=== PATIENT | female | born 1970 | race Caucasian/White ===

== ENCOUNTER 2024-03-19 20:07 | Observation (INO) | payer SELFPAY ==
[2024-03-19 20:14] VITALS: BP 147/84; PULSE 100; RESP 17; TEMP 36.9; O2SAT 96; BMI 44.4
--- NOTE | 2024-03-19 20:27 | ED_ITS ---
Documented by User: QASIM Saldivar 03/19/24 23:47 HPI - Animal Bite 2 General: Chief Complaint: Animal Bite Stated Complaint: Dog Bite Rt Leg Time Seen by Provider: 03/19/24 20:16 History of Present Illness: 53-year-old female comes in today for in jury to the right lower leg. Patient states that on the fourth another dog came up into the field with her dog and got into a fight. Patient accidentally got bit by her dog to the right lower extremity. To the anterior part of the leg there is a 2 linear wounds with central necrotic tissue. Surrounding redness is noted to the extremity. Distal pulses are intact. Review of Systems 2 General: Reports: 10 or more systems reviewed and unremarkable except in HPI and below Skin/Breast: Reports: changing lesions Physical Exam 2 Const: COMMON NORMALS: alert HENMT: COMMON NORMALS: normocephalic HEAD & SCALP: normocephalic Neck/C-Spine: COMMON NORMALS: full ROM Resp: COMMON NORMALS: normal respiratory effort and clear to auscultation bilaterally AUSCULTATION: clear to auscultation bilaterally Cardio: COMMON NORMALS: regular rate and regular rhythm RATE: regular rate RHYTHM: regular rhythm Back/Pelvis: COMMON NORMALS: thoracic and lumbar spine normal to inspection Extremity: RIGHT LOWER EXTREMITY: Yes lower leg (2 linear necrotic lesions approximately 4 and 5 cm) Neuro: SENSORIUM/ORIENTATION: Yes alert Skin: NARRATIVE SKIN EXAM: Necrotic wound right lower extremity 2 linear patterns 1 is 4 cm of the spine. Course 2 Vital Signs: Vital signs: Vital Signs Temperature 98.4 F 03/20/24 01:39 Pulse Rate 89 03/20/24 01:39 Respiratory Rate 17 03/20/24 01:39 Blood Pressure 140/70 03/20/24 01:23 Pulse Oximetry 96 03/20/24 01:39 Oxygen Delivery Me thod Room Air 03/20/24 01:39 MDM - Animal Bite Medical Decision Making Patient comes in today for worsening dog bite wound to the right lower leg that has wound necrosis. Wound is malodorous and darkened. Patient was bit on the fourth. Differential diagnosis includes abscess, wound necrosis, sepsis. Reviewed patient with Dr. Amaya, attending ER physician, he recommended consulting with orthopedic surgeon Dr. Ibanez. 2227, Dr. Ibanez was involved in a case. I consulted with Dr. Neal, attending hospitalist, she did not want to admit until after discussion with Dr. Ibanez. She did recommend more broad-spectrum antibiotics besides Unasyn. I ordered 1 g of vancomycin. 2240, Dr. Ibanez returned call and will review case and will notify them. 2306, Dr. Ibanez requested hospitalist to admit and he will consult on the patient. Dr. Neal, accepted patient graciously for further treatment. Wound was irrigated with 500 mL of saline and wet-to-dry dressing was applied. Lab Data 03/19/24 20:48 03/19/24 20:48 Radiology Impressions Lower Extremity CT 03/19/24 20:33 IMPRESSION: 1. There is moderate soft tissue inflammation and skin thickening anterolateral to the right ankle and extending inferiorly over the dorsum of the tarsal bones suspicious for cellulitis. No localized abscess. 2. Large calcified enthesophyte at the Achilles tendon insertion. 3. Calcification with enlargement near the insertion of the Achilles tendon suggesting calcific tendinitis. Laboratory Results WBC 12.65 10^3/uL (3.29-11.43) H 03/19/24 20:48 RBC 4.81 10^6/uL (3.85-5.65) 03/19/24 20:48 Hgb 14.60 g/dL (11.27-16.99) 03/19/24 20:48 Hct 43.7 % (36-47) 03/19/24 20:48 MCV 90.9 fl (85-98) 03/19/24 20:48 MCH 30.4 pg (27-33) 03/19/24 20:48 MCHC 33.4 g/dL (30-55) 03/19/24 20:48 RDW 12.9 % (12.1-15.1) 03/19/24 20:48 Plt Count 227 10^3/cmm (157-399) 03/19/24 20:48 MPV 10.3 fL (7.4-10.4) 03/19/24 20:48 Neut % (Auto) 63.5 % 03/19/24 20:48 Lymph % (Auto) 28.3 % 03/19/24 20:48 Taliaferro % (Auto) 5.9 % 03/19/24 20:48 Eos % (Auto) 1.7 % 03/19/24 20:48 Baso % (Auto) 0.4 % 03/19/24 20:48 Neut # (Auto) 8.02 10^3/uL (1.8-7.7) H 03/19/24 20:48 Lymph # (Auto) 3.6 10^3/uL (0.8-4.8) 03/19/24 20:48 Taliaferro # (Auto) 0.8 10^3/uL (0.2-0.9) 03/19/24 20:48 Eos # (Auto) 0.2 10^3/uL (0.0-0.8) 03/19/24 20:48 Baso # (Auto) 0.1 10^3/uL (0.0-0.1) 03/19/24 20:48 Nucleated RBC % (auto) 0 % 03/19/24 20:48 Nucleated RBCs # 0.0 /100WBC 03/19/24 20:48 ESR 34 mm/hr (0-15) H 03/19/24 20:48 Sodium 136 mmol/L (136-145) 03/19/24 20:48 Potassium 4.3 mmol/L (3.5-5.1) 03/19/24 20:48 Chloride 103 mmol/L (98-107) 03/19/24 20:48 Carbon Dioxide 25 mmol/L (22-29) 03/19/24 20:48 Anion Gap 12.3 (5-19) 03/19/24 20:48 BUN 11 mg/dL (6-20) 03/19/24 20:48 Creatinine 0.6 mg/dL (0.5-0.9) 03/19/24 20:48 GFR Calculation 104.2 mL/min (90-130) 03/19/24 20:48 Glucose 121 mg/dL (65-115) H 03/19/24 20:48 Calculated Osmolality 283 mOsm/kg (285-295) L 03/19/24 20:48 Lactic Acid 0.8 mmol/L (0.5-2.2) 03/19/24 20:48 Calcium 8.9 mg/dL (8.5-10.5) 03/19/24 20:48 Total Bilirubin 0.6 mg/dL (0.15-1.2) 03/19/24 20:48 AST 12 U/L (0-32) 03/19/24 20:48 ALT 22 U/L (0-33) 03/19/24 20:48 Alkaline Phosphatase 62 U/L (35-105) 03/19/24 20:48 C-Reactive Protein 113.0 mg/L (0.0-4.9) H 03/19/24 20:48 Total Protein 7.2 g/dL (6.6-8.7) 03/19/24 20:48 Albumin 4.1 g/dL (3.5-5.2) 03/19/24 20:48 Globulin 3.1 g/dL (1.3-4.6) 03/19/24 20:48 All radiology interpretation(s) finalized by discharge Discharge Plan Discharge Patient Disposition: Admitted As Inpatient Admit Provider: Annabel Neal Clinical Impression: Dog bite, Cellulitis and abscess of right leg Condition: Stable Coding Level of Care Code ED Appetizer Packer for Chg Fwd Documented by User: Matthew Amaya DO 03/20/24 02:11 HPI - Animal Bite 2 General: Chief Complaint: Animal Bite Stated Complaint: Dog Bite Rt Leg Time Seen by Provider: 03/19/24 20:16 Course 2 Vital Signs: Vital signs: Vital Signs Temperature 98.4 F 03/20/24 01:39 Pulse Rate 89 03/20/24 01:39 Respiratory Rate 17 03/20/24 01:39 Blood Pressure 140/70 03/20/24 01:23 Pulse Oximetry 96 03/20/24 01:39 Oxygen Delivery Me thod Room Air 03/20/24 01:39 MDM - Animal Bite Medical Decision Making Patient comes in today for worsening dog bite wound to the right lower leg that has wound necrosis. Wound is malodorous and darkened. Patient was bit on the fourth. Differential diagnosis includes abscess, wound necrosis, sepsis. Reviewed patient with Dr. Amaya, attending ER physician, he recommended consulting with orthopedic surgeon Dr. Ibanez. 2227, Dr. Ibanez was involved in a case. I consulted with Dr. Neal, attending hospitalist, she did not want to admit until after discussion with Dr. Ibanez. She did recommend more broad-spectrum antibiotics besides Unasyn. I ordered 1 g of vancomycin. 2240, Dr. Ibanez returned call and will review case and will notify them. 2306, Dr. Ibanez requested hospitalist to admit and he will consult on the patient. Dr. Neal, accepted patient graciously for further treatment. Wound was irrigated with 500 mL of saline and wet-to-dry dressing was applied. This patient was originally seen by QASIM Julian.? I agree with his history, evaluation, and treatment. Lab Data 03/19/24 20:48 03/19/24 20:48 Radiology Impressions Lower Extremity CT 03/19/24 20:33 IMPRESSION: 1. There is moderate soft tissue inflammation and skin thickening anterolateral to the right ankle and extending inferiorly over the dorsum of the tarsal bones suspicious for cellulitis. No localized abscess. 2. Large calcified enthesophyte at the Achilles tendon insertion. 3. Calcification with enlargement near the insertion of the Achilles tendon suggesting calcific tendinitis. Laboratory Results WBC 12.65 10^3/uL (3.29-11.43) H 03/19/24 20:48 RBC 4.81 10^6/uL (3.85-5.65) 03/19/24 20:48 Hgb 14.60 g/dL (11.27-16.99) 03/19/24 20:48 Hct 43.7 % (36-47) 03/19/24 20:48 MCV 90.9 fl (85-98) 03/19/24 20:48 MCH 30.4 pg (27-33) 03/19/24 20:48 MCHC 33.4 g/dL (30-55) 03/19/24 20:48 RDW 12.9 % (12.1-15.1) 03/19/24 20:48 Plt Count 227 10^3/cmm (157-399) 03/19/24 20:48 MPV 10.3 fL (7.4-10.4) 03/19/24 20:48 Neut % (Auto) 63.5 % 03/19/24 20:48 Lymph % (Auto) 28.3 % 03/19/24 20:48 Taliaferro % (Auto) 5.9 % 03/19/24 20:48 Eos % (Auto) 1.7 % 03/19/24 20:48 Baso % (Auto) 0.4 % 03/19/24 20:48 Neut # (Auto) 8.02 10^3/uL (1.8-7.7) H 03/19/24 20:48 Lymph # (Auto) 3.6 10^3/uL (0.8-4.8) 03/19/24 20:48 Taliaferro # (Auto) 0.8 10^3/uL (0.2-0.9) 03/19/24 20:48 Eos # (Auto) 0.2 10^3/uL (0.0-0.8) 03/19/24 20:48 Baso # (Auto) 0.1 10^3/uL (0.0-0.1) 03/19/24 20:48 Nucleated RBC % (auto) 0 % 03/19/24 20:48 Nucleated RBCs # 0.0 /100WBC 03/19/24 20:48 ESR 34 mm/hr (0-15) H 03/19/24 20:48 Sodium 136 mmol/L (136-145) 03/19/24 20:48 Potassium 4.3 mmol/L (3.5-5.1) 03/19/24 20:48 Chloride 103 mmol/L (98-107) 03/19/24 20:48 Carbon Dioxide 25 mmol/L (22-29) 03/19/24 20:48 Anion Gap 12.3 (5-19) 03/19/24 20:48 BUN 11 mg/dL (6-20) 03/19/24 20:48 Creatinine 0.6 mg/dL (0.5-0.9) 03/19/24 20:48 GFR Calculation 104.2 mL/min (90-130) 03/19/24 20:48 Glucose 121 mg/dL (65-115) H 03/19/24 20:48 Calculated Osmolality 283 mOsm/kg (285-295) L 03/19/24 20:48 Lactic Acid 0.8 mmol/L (0.5-2.2) 03/19/24 20:48 Calcium 8.9 mg/dL (8.5-10.5) 03/19/24 20:48 Total Bilirubin 0.6 mg/dL (0.15-1.2) 03/19/24 20:48 AST 12 U/L (0-32) 03/19/24 20:48 ALT 22 U/L (0-33) 03/19/24 20:48 Alkaline Phosphatase 62 U/L (35-105) 03/19/24 20:48 C-Reactive Protein 113.0 mg/L (0.0-4.9) H 03/19/24 20:48 Total Protein 7.2 g/dL (6.6-8.7) 03/19/24 20:48 Albumin 4.1 g/dL (3.5-5.2) 03/19/24 20:48 Globulin 3.1 g/dL (1.3-4.6) 03/19/24 20:48 Discharge Plan Discharge Patient Disposition: Admitted As Inpatient Admit Provider: Annabel Neal Clinical Impression: Dog bite, Cellulitis and abscess of right leg Condition: Stable Coding Level of Care Code ED Appetizer Packer for Gregory Garcia
--- NOTE | 2024-03-19 20:33 | CTR_ITS ---
PROCEDURE INFORMATION: Exam: CT Right Lower Extremity With Contrast; Lower Leg Exam date and time: 03/19/2024 9:11 PM Age: 53 years old Clinical indication: Injury or trauma; Other: Dog bite; Lower leg; Right; Without foreign body; Prior surgery; Surgery date: 6+ months; Surgery type: Meniscus repair; Patient HX: Patient bit on the ankle by a dog on 03/17/2024. There is swelling and purluent drainage with necrosis to puncture wounds at anterior aspect of ankle. ; Additional info: Infected wound TECHNIQUE: Imaging protocol: CT of the right lower extremity with intravenous contrast was performed. Exam focused on the lower leg. Sagittal and coronal reformatted images were created and reviewed. Radiation optimization: All CT scans at this facility use at least one of these dose optimization techniques: automated exposure control; mA and/or kV adjustment per patient size (includes targeted exams where dose is matched to clinical indication); or iterative reconstruction. COMPARISON: No relevant prior studies available. RADIATION DOSE METRICS: Total DLP (mGy-cm): 1538.81 FINDINGS: Bones/joints: No acute fracture. No dislocation. Degenerative changes at the right knee and right ankle. Moderate plantar calcaneal bone spur. No lytic or sclerotic bony lesions. Soft tissues: Large calcified enthesophyte at the Achilles tendon insertion. Calcification with enlargement near the insertion of the Achilles tendon suggesting calcific tendinitis. There is moderate soft tissue inflammation and skin thickening anterolateral to the right ankle and extending inferiorly over the dorsum of the tarsal bones suspicious for cellulitis. No localized abscess. No radiopaque foreign body. CT/CT lower leg RT w con [id number] IMPRESSION: 1. There is moderate soft tissue inflammation and skin thickening anterolateral to the right ankle and extending inferiorly over the dorsum of the tarsal bones suspicious for cellulitis. No localized abscess. 2. Large calcified enthesophyte at the Achilles tendon insertion. 3. Calcification with enlargement near the insertion of the Achilles tendon suggesting calcific tendinitis.
[2024-03-19 20:59] LABS: Basophils # 0.1 10^3/uL (0.0-0.1); Basophils % 0.4 %; Eosinophils # 0.2 10^3/uL (0.0-0.8); Eosinophils % 1.7 %; Hematocrit 43.7 % (36-47); Lymphocytes # 3.6 10^3/uL (0.8-4.8); Lymphocytes % 28.3 %; Mean Corpuscular HGB Conc 33.4 g/dL (30-55); Mean Corpuscular Hemoglobin 30.4 pg (27-33); Mean Corpuscular Volume 90.9 fl (85-98); Mean Platelet Volume 10.3 fL (7.4-10.4); Monocytes # 0.8 10^3/uL (0.2-0.9); Monocytes % 5.9 %; Neutrophils # 8.02 10^3/uL (1.8-7.7); Neutrophils % 63.5 %; Nucleated Red Blood Cells % 0 %; Platelet Count 227 10^3/cmm (157-399); Red Blood Count 4.81 10^6/uL (3.85-5.65); Red Cell Distribution Width 12.9 % (12.1-15.1); White Blood Count 12.65 10^3/uL (3.29-11.43)
[2024-03-19] MEDS: iohexol 350 mg/mL 500 mL Btl (per mL) IV (21:15)
[2024-03-19 21:20] LABS: Lactic Sepsis W/Reflex 0.8 mmol/L (0.5-2.2)
[2024-03-19 21:21] LABS: Alanine Aminotransferase 22 U/L (0-33); Albumin Level 4.1 g/dL (3.5-5.2); Alkaline Phosphatase 62 U/L (35-105); Anion Gap 12.3 (5-19); Aspartate Amino Transferase 12 U/L (0-32); Blood Urea Nitrogen 11 mg/dL (6-20); Calcium 8.9 mg/dL (8.5-10.5); Carbon Dioxide 25 mmol/L (22-29); Chloride 103 mmol/L (98-107); Creatinine Clr Calc Pharmacy 139.8437; Globulin 3.1 g/dL (1.3-4.6); Glomerular Filtration Rate 104.2 mL/min (90-130); Glucose 121 mg/dL (65-115); Osmolality Calculated 283 mOsm/kg (285-295); Potassium 4.3 mmol/L (3.5-5.1); Sodium 136 mmol/L (136-145); Total Bilirubin 0.6 mg/dL (0.15-1.2); Total Protein 7.2 g/dL (6.6-8.7)
[2024-03-19 21:24] LABS: Erythrocyte Sedimentation Rate 34 mm/hr (0-15)
--- NOTE | 2024-03-19 21:40 | PC.NURSE ---
ABX RECONSTITUTED BY THIS NURSE FOR THIS PT.
[2024-03-19] MEDS: ampicillin-sulbactam 3 GM in sodium chloride 0.9% (plus) 50 ML IV (21:44)
[2024-03-19 23:30] VITALS: BP 130/100; PULSE 93; RESP 16; O2SAT 96
[2024-03-19] MEDS: vancomycin 1,000 MG in sodium chloride 0.9% 250 ML 250 MG IV (23:33)
[2024-03-20] VITALS (17 sets, daily range): BP systolic 120–143; BP diastolic 70–92; PULSE 65–98; RESP 15–20; TEMP 36.3–37.2; O2SAT 92–99
--- NOTE | 2024-03-20 00:16 | P.CONIM_ITS ---
Providers/Reason For Consult 2 Consulting Physician/Specialty*: Logan Ibanez DO/orthopedic surgery Reason for Consult*: Right lower extremity dog bite wound with necrosis, infection and cellulitis Requesting Physician: Conrado García NP emergency department Attending Physician: Dr. Neal History of Present Illness History of Present Illness Patricia Johnson is a 53 year old female who sustained a dog bite to the right lower extremity on March 17. Dog has known shot records and up-to-date. Patient's tried managing this at home however it started to have increased drainage pain and erythema and subsequently presented to the emergency department seen evaluate by emergency department found to have elevated white count as well as elevated inflammatory markers given the foul-smelling drainage and necrotic wound orthopedics was consulted. Patient is admitted by the hospitalist team for IV antibiotics for cellulitis orthopedics was consulted for the wound. Patient states she has felt feverish and had some chills. Patient's been afebrile since presentation. Review of Systems 2 General: Reports: 10 or more systems reviewed and unremarkable except in HPI and below Medications/Allergies Allergies Allergy/AdvReac Type Severity Reaction Status Date / Time No Known Allergies Allergy Verified 03/19/24 20:19 Vitals/I&O/Wt Last Vital Signs Temp 98.4 F 03/19/24 20:14 Pulse 100 03/19/24 20:14 Resp 17 03/19/24 20:14 BP 147/84 03/19/24 20:14 Pulse Ox 96 03/19/24 20:14 O2 Del Method Room Air 03/19/24 20:14 03/19/24 03/19/24 03/20/24 14:59 22:59 06:59 Intake Total 50 / 50 Balance 50 / 50 Weight last 48 hrs Weight 267 lb Physical Exam 2 Narrative: Examination of the right lower extremity dressings taken down and's and dog bite to the right lower legs inspected anterior cellulitis radiating down into the dorsal aspect of the foot as well as minimal proximal tracking. Patient's right lower extremity has 2 transverse wounds with extensive black necrotic tissue draining murky bloody tinged necrotic fluid. Foul-smelling drainage. She is able to wiggle her toes plantarflex and dorsiflex the ankle sensations intact light touch distally she is able to tolerate passive range of motion of the foot and ankle without any pain or issues there is no proximal tracking infection or any subcutaneous gas emphysema or bullae appreciated on exam. Distal pulses are palpable compartments are soft compressible. Brisk cap refill less than 2 seconds Data 03/19/24 20:48 03/19/24 20:48 Other Labs: ESR 34, CRP 113 Micro: Microbiology 03/19/24 20:48 Blood Culture - Preliminary Blood SPECIMEN COLLECTED 03/19/24 20:48 Blood Culture - Preliminary Blood SPECIMEN COLLECTED Other CT: Radiologist's impression: CT/CT lower leg RT w con [id number] IMPRESSION: 1. There is moderate soft tissue inflammation and skin thickening anterolateral to the right ankle and extending inferiorly over the dorsum of the tarsal bones suspicious for cellulitis. No localized abscess. 2. Large calcified enthesophyte at the Achilles tendon insertion. 3. Calcification with enlargement near the insertion of the Achilles tendon suggesting calcific tendinitis. A&P Assessment and plan (1) Cellulitis and abscess of right leg: (2) Dog bite: Qualifiers: Encounter type: initial encounter Qualified Code(s): W54.0XXA - Bitten by dog, initial encounter Plan N.p.o. at midnight Hospitalist to admit as primary of cellulitis and dog bite Orthopedics consulted On IV antibiotics Localized wound care wet-to-dry dressing Elevation Pain control Will reevaluate patient in the morning plan for possible right lower extremity I&D in the morning depending on response to treatment. She does state that she has a interview on Thursday and would like to have this addressed and washed out if possible. Given that chronicus of the wound this could potentially have more accelerated healing with an I&D to debride out the necrotic tissue for earlier primary closure so patient can make a interview that she has coming this Thursday. We talked about this tonight and ultimately she will be n.p.o. and will reevaluate her in the morning. Patient understands agrees current plan. Questions answered. Coding Level of Care Code Acute Code for [facility] Fwd Diagnoses Cellulitis and abscess of right leg L03.115; L02.415 Dog bite W54.0XXA Encounter type: initial encounter Time Spent (min) 45
--- NOTE | 2024-03-20 00:29 | P.HP_ITS ---
Providers/Chief Complaint 2 Admitting Physician: Annabel Neal MD Chief Complaint: Dog Bite Rt Leg History of Present Illness Patricia oJhnson is a 53 year old female with multiple past medical history presented to the hospital today after her dog bit her on her leg. She states that she was with her horse on 17 March and her dog was also outside with her when a stray dog started running towards her dog. Her her dog and the stray dog attacked each other and watching that the horse got little restless therefore she was pushed and got caught between the 2 dogs. Her dog attempted to bite the stray dog however her leg came in between and dog ended up biting her leg. She says immediately he let go. Her dog has been vaccinated. She is 100% sure that it was an accident. She has worsening redness and worsening wound therefore she came to the hospital. Orthopedic surgery was called who initially plan to take patient to the OR for debridement immediately however patient last ate a few hours ago and would not be safe to undergo anesthesia. Plan to keep her n.p.o. at night and take her to surgery in the morning. She was given a dose of Unasyn and I suggested to add vancomycin to that when I was called. The bite took place [address] of the leg was done which showed cellulitis however no defined abscess. Wound itself appears necrotic. Medications/Allergies Allergies Allergy/AdvReac Type Severity Reaction Status Date / Time No Known Allergies Allergy Verified 03/19/24 20:19 Vitals/I&O/Wt Last Vital Signs Temp 98.4 F 03/19/24 20:14 Pulse 100 03/19/24 20:14 Resp 17 03/19/24 20:14 BP 147/84 03/19/24 20:14 Pulse Ox 96 03/19/24 20:14 O2 Del Method Room Air 03/19/24 20:14 03/19/24 03/19/24 03/20/24 14:59 22:59 06:59 Intake Total 50 / 50 Balance 50 / 50 Weight last 48 hrs Weight 121.109 kg Physical Exam 2 Narrative: Sitting up in bed appearing comfortable at this time. Breathing room air. No acute distress Lungs clear to auscultation Abdomen soft nontender Right lower extremity shows the following: Please see pictures below. Wound recently irrigated. Areas of necrosis present. No active drainage at this time. Data 03/19/24 20:48 03/19/24 20:48 Micro: Microbiology 03/19/24 20:48 Blood Culture - Preliminary Blood SPECIMEN COLLECTED 03/19/24 20:48 Blood Culture - Preliminary Blood SPECIMEN COLLECTED A&P Assessment and plan (1) Cellulitis and abscess of right leg: (2) Dog bite: Qualifiers: Encounter type: initial encounter Qualified Code(s): W54.0XXA - Bitten by dog, initial encounter Plan #Cellulitis right lower extremity #Dog bite 17 March ? Continue on vancomycin and ceftriaxone. ? N.p.o. at midnight. ? Plan for debridement in AM. ? Check baseline EKG, chest x-ray as preop evaluation ? Placed on normal saline 125 cc/h ? Orthopedic surgery consulted. Discussed with Dr. Ibanez in detail. Check blood cultures, procalcitonin, crp Full code DVT prophylaxis: Will hold off on mechanical as there is wound on right tibial area. Will hold off on pharmacological as well as patient will be going for surgery in the morning. Attestations 2 Medical Necessity Statement*: Less than 48 hours stay. Most likely patient will be able to go home after debridement and morning. Will convert to inpatient admission if clinically warranted. Diagnoses Cellulitis and abscess of right leg L03.115; L02.415 Dog bite W54.0XXA Encounter type: initial encounter
--- NOTE | 2024-03-20 02:55 | XRR_ITS ---
PROCEDURE INFORMATION: Exam: XR Chest Exam date and time: 03/20/2024 6:12 AM Age: 53 years old Clinical indication: Other: Pre op; Additional info: Pre-op TECHNIQUE: Imaging protocol: Radiologic exam of the chest. Views: 1 view. COMPARISON: No relevant prior studies available. FINDINGS: Lungs: No consolidation. Pleural spaces: No sizable pleural effusion or pneumothorax. Heart/Mediastinum: No cardiomegaly. Bones/joints: Unremarkable. XR/XR chest 1V portable [id number] IMPRESSION: No acute intrathoracic findings.
--- NOTE | 2024-03-20 03:01 | ECG_ITS ---
[facility] Test Date: 2024-03-20 Pat Name: Patricia Johnson Department: Room: 261 Gender: Female Business Information Analyst: : 1970 Requested By: Annabel Neal Order Number: [id number] Yañez MD: Tobin Germain M.D. Measurements Intervals [place] Rate: 88 P: 45 OH: 170 QRS: 47 QRSD: 88 T: 43 QT: 340 QTc: 412 Interpretive Statements SINUS RHYTHM No previous ECG available for comparison Electronically Signed On 03-20-2024 19:27:58 CDT by Tobin Germain M.D. [email or web address]
[2024-03-20] MEDS: sodium chloride 0.9% 1,000 ML 125 ML IV ×2 (03:34→11:29)
[2024-03-20] MEDS: cefTRIAXone 1,000 MG in sodium chloride 0.9% (plus) 50 ML 100 MG IV (03:34)
[2024-03-20 03:37] LABS: Procalcitonin 0.09 ng/mL (0-0.5)
[2024-03-20 03:45] LABS: C Reactive Protein 105.8 mg/L (0.0-4.9)
[2024-03-20] MEDS: sodium chloride 0.9% 1,000 ML 30 ML IV (08:04)
--- NOTE | 2024-03-20 08:13 | PM.PN ---
Subjective Subjective: Patient seen and examined this morning. She has had improvement in her cellulitis but still has black necrotic tissue with drainage about the incision site. 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 Vitals/I&O/Wt Last Vital Signs Temp 97.3 F L 03/20/24 07:44 Pulse 98 03/20/24 07:44 Resp 19 H 03/20/24 07:44 BP 124/79 03/20/24 07:44 Pulse Ox 95 03/20/24 07:44 O2 Del Method Room Air 03/20/24 07:44 03/19/24 03/20/24 03/20/24 22:59 06:59 14:59 Intake Total 50 / 50 300 / 350 Balance 50 / 50 300 / 350 Weight last 48 hrs Weight 257 lb 6 oz Weight 267 lb Weight 267 lb Physical Exam Narrative: Examination of the right lower extremity dressings taken down and's and dog bite to the right lower legs inspected anteriorly previous frank of cellulitis has improved showing improvement in the erythema as well as improvement or tenderness palpation but there still is some black necrotic tissue about the wound bed with some mild periwound erythema but she does have murky bloody necrotic drainage. She is able to wiggle toes plantarflex and dorsiflex ankle sensations intact light touch distally. Data 03/19/24 20:48 03/19/24 20:48 Micro: Microbiology 03/19/24 20:48 Blood Culture - Preliminary Blood SPECIMEN COLLECTED 03/19/24 20:48 Blood Culture - Preliminary Blood SPECIMEN COLLECTED A&P Assessment and plan (1) Cellulitis and abscess of right leg: (2) Dog bite: Qualifiers: Encounter type: initial encounter Qualified Code(s): W54.0XXA - Bitten by dog, initial encounter Plan Patient has improving cellulitis Still has necrotic tissue and drainage at the wound bed We talked about her treatment options in detail nonoperative versus operative intervention. Through shared decision-making she would like to have this cleaned out today in hopes that she can make her interview if at all possible tomorrow At this point in time I feel the antibiotics I do feel is helping. There is no signs of any progressing infection and her cellulitis has improved but she still does have 2 large black necrotic wounds on the anterior aspect of the right lower extremity that still are draining has black necrotic tissue through shared decision making she like to pursue surgical intervention for right lower extremity irrigation debridement. I feel like with this we can debride the edges and get out all the necrotic tissue and likely close this primarily feel since its only been 2 days she has gone to this earlier state and if she completes likely 24 hours of IV antibiotics after good debridement today she would be able to discharge later this evening or or early tomorrow morning. Understanding risk benefits complication alternatives of surgery. Risk of surgery clued not limited to make a better make it worse possible wound breakdown, further infection requiring further surgery. Understanding risk of surgery she elects to proceed all questions answered at this time. N.p.o. since been On IV antibiotics Internal medicine as primary Plan for the OR today for right lower extremity irrigation and debridement Attestations Medical Necessity Statement*: Right lower extremity dog bite with draining wound Coding Level of Care Code Acute Code for [facility] Diagnoses Cellulitis and abscess of right leg L03.115; L02.415 Dog bite W54.0XXA Encounter type: initial encounter
--- NOTE | 2024-03-20 08:22 | W.PM.OPSUD ---
Surgery/Procedure H&P Update DATE OF PROCEDURE: March 20, 2024 DATE H&P PERFORMED: 03/20/24 H&P UPDATE INFORMATION: I have reviewed H&P completed within last 30 days, I have examined patient prior to procedure and No changes to prior documentation PREOP DIAGNOSIS: Right lower extremity dog bite wound/infection PRIMARY INDICATION FOR PROCEDURE: Right lower extremity dog bite draining wound infection PLANNED PROCEDURE: Operation Date: 03/20/24 08:40 Proposed Procedures p Incision & Drainage Lower Extremity(Right) - Logan Ibanez DO
--- NOTE | 2024-03-20 08:27 | P.ANESASSM_ITS ---
Pre-Anesthetic Assessment Height/Weight: Height 1.65 m Weight 116.743 kg Temp Pulse Resp BP Pulse Ox O2 Del Method 97.3 F L 98 19 H 124/79 95 Room Air 03/20/24 07:44 03/20/24 07:44 03/20/24 07:44 03/20/24 07:44 03/20/24 07:44 03/20/24 07:44 Preop Diagnosis: Right lower extremity dog bite wound/infection Operation Date: 03/20/24 08:40 Proposed Procedures p Incision & Drainage Lower Extremity(Right) - Logan Shamar, DO Familial anesthetic complications: None Was Beta Mykel taken within 24 hours: N/A Was Clonidine taken within 24 hours: N/A Last intake: > 8 hrs Social No alcohol and No tobacco Exam alert, oriented x 3, clear to auscultation bilaterally and regular rate & rhythm Airway Mallampati: Class II Dentition: other (missing) Metabolic Morbid Obesity Anesthetic Plan ASA status: 2 Anesthesia: General Risk of > 500 ml blood loss (7ml/kg in children): No Medications/Allergies Allergies Allergy/AdvReac Type Severity Reaction Status Date / Time No Known Allergies Allergy Verified 03/19/24 20:19 Current Medications Generic Name Dose Route Start Last Admin Trade Name Freq PRN Reason Stop Dose Admin Sodium Chloride 1,000 mls @ 125 mls/hr 03/20/24 03:00 03/20/24 03:34 Sodium Chloride 0.9% IV 125 mls/hr .Q8H ARLENE Administration Ceftriaxone Sodium 1,000 mg/ 50 mls @ 100 mls/hr 03/20/24 03:15 03/20/24 04:09 Sodium Chloride IV Infused Q24H ARLENE Infusion Protocol Sodium Chloride 1,000 mls @ 30 mls/hr 03/20/24 08:00 03/20/24 08:04 Sodium Chloride 0.9% IV 03/21/24 07:59 30 mls/hr .Q24H ARLENE Administration Data Anesthesia 03/19/24 20:48 03/19/24 20:48 Short CBC 03/19/24 Range/Units 20:48 WBC 12.65 H (3.29-11.43) 10^3/uL Hgb 14.60 (11.27-16.99) g/dL Hct 43.7 (36-47) % MCV 90.9 (85-98) fl Plt Count 227 (157-399) 10^3/cmm Neut % (Auto) 63.5 % Neut # (Auto) 8.02 H (1.8-7.7) 10^3/uL BMP 03/19/24 20:48 Sodium 136 Potassium 4.3 Chloride 103 Carbon Dioxide 25 BUN 11 Creatinine 0.6 Glucose 121 H Calcium 8.9 Liver Function 03/19/24 Range/Units 20:48 Total Bilirubin 0.6 (0.15-1.2) mg/dL AST 12 (0-32) U/L ALT 22 (0-33) U/L Alkaline Phosphatase 62 (35-105) U/L Albumin 4.1 (3.5-5.2) g/dL Coags 03/19/24 03/20/24 20:48 00:00 ESR 34 H C-Reactive Protein 113.0 H 105.8 H Microbiology 03/19/24 20:48 Blood Culture - Preliminary Blood SPECIMEN COLLECTED 03/19/24 20:48 Blood Culture - Preliminary Blood SPECIMEN COLLECTED Cardiac Studies: 2 No Data to Display
[2024-03-20] MEDS: acetaminophen 1,000 MG/100 ML PIGGYBACK 400 MG IV (08:32)
[2024-03-20] MEDS: lidocaine 2% INJ 20 mL 10 ML INJECTION (09:35)
[2024-03-20] MEDS: ROPivacaine 0.5% SDV 30 mL 50 MG INTRATHECA (09:35)
--- NOTE | 2024-03-20 09:36 | P.BOP_ITS ---
Date of Procedure: [03/20/2024] Surgeon: Logan Ibanez DO Search Advertising Strategist(s): Ananda Ibanez PA-C Procedure(s) performed: Right lower extremity irrigation and debridement (10 cm x 3 cm x 3 cm) Findings of the procedure(s): Patient found to have wound necrosis and drainage from a dog bite. Patient had foul-smelling drainage due to patient's wound necrosis. I was able to undermine under the fat there is no accumulation of purulence or abscess. I subsequently performed a standard irrigation debridement with a primary closure and a Mei drain placed she tolerated this procedure without issues or complications. Estimated blood loss: 5 mL Specimen(s) removed: None Post-operative diagnosis: Right lower extremity infection status post dog bite
--- NOTE | 2024-03-20 09:38 | P.OP_ITS ---
Operative Report Date of procedure: March 20, 2024 Pre-op diagnosis: Right lower extremity infection dog bite Post-op diagnosis: Same with wound necrosis Procedure done: Right lower extremity irrigation debridement (10 cm x 3 cm x 3 cm Surgeon: Logan Ibanez DO Wildlife Forensic Geneticist: Ananda Ibanez PA-C: PA was necessary for assistance in this case with hand positioning to execute the procedure, retraction and protection of neurovascular structures as well as to assist with wound closure and dressing application. Anesthesia: MAC and Local Estimated blood loss: 5 mL 27 minutes IV fluids: 200 mL Complications: None Findings: See operative report narrative Condition: stable Disposition: floor Brief History: Patient is a 53-year-old female who sustained a dog bite on March 17 by her dog with shot records up-to-date unfortunately she developed wound necrosis from the area with some foul-smelling drainage she was brought to the emergency department did have some localized cellulitis and as result patient was admitted by the primary team orthopedics consulted her cellulitis did improve with antibiotics however she still had foul-smelling drainage with significant necrotic tissue around the edges as a result through shared decision making we talked about treatment options she like to pursue surgical intervention of the right lower extremity irrigation and debridement. She understands these outs procedure risk benefits complication alternatives of surgery through shared decision-making elects proceed with surgical intervention. All questions answe red at this time. Procedure: Patient was seen evaluate in the preoperative holding area. Consent was reviewed and signed with patient correct extremity was subsequently marked. Patient was then seen evaluated by anesthesia once cleared for surgery was taken back to the operative suite kept on [facility] she underwent anesthesia per the anesthesia department once properly anesthetized she was properly secured to the bed and a nonsterile tourniquet was applied to the right thigh. Patient then subsequently received appropriate preoperative antibiotics and also antibiotic she had been receiving on the floor as well as final timeout performed confirming correct surgery and correct site. Esmarch tourniquet was used exsanguinate right lower extremity and tourniquet was insufflated to 300 mmHg I immediately took blunt hemostats and undermined all the subcutaneous tissue expressing any weeping of chronic drainage. I then subsequently utilized sharp scalpel excision these had 2 transverse longitudinal lines there was only a couple millimeters of devitalized skin bridging between the 2 that was already breaking down as result made the decision to make a complete excision and debrided the skin edges to healthy bleeding tissue and removing all black necrotic tissue with sharp scalpel excision rongeur and curette. I subsequently utilized a curette and curetted all subcutaneous fat down to the level of the fascia and removed any of the necrotic tissue on the fascia this was not taken down to tendon or bone or muscle belly. After satisfactory debridement and removal of all necrotic black tissue I then thoroughly irrigated with 6 L of normal saline under gravity flow cystoscopy tubing there was no evidence of any abscess accumulation just necrotic tissue and its drainage. Once I was satisfied with my complete excision and debridement of the entire wound bed creating would area this ended up totaling 10 cm x 3 cm x 3 cm. This was all stable to healthy bleeding tissue tourniquet was deflated hemostasis satisfactory I then placed a deep Gulliver drain and then closed with interrupted couple deep stitches of the subcutaneous fat and tissue and then reapproximated with interrupted mattress and simple interrupted 2-0 PDS stitches loosely reapproximating the skin edges to allow for some drainage as well as with the Gulliver. I then subsequently dressed this with Xeroform 4 x 4's ABD Curlex Ronald wrap and placed in a cam boot. Patient tolerated procedure without issues or complications taken to PACU in stable condition will return to floor received appropriate roughly 24 hours IV antibiotics. Disposition: Patient taken PACU in stable condition recovering well return to the floor postoperatively. Will get roughly 24 hours of IV antibiotics. Since she already had resolution of her cellulitis and she had complete excision and no proximal tracking infection or abscess all the necrotic tissue has been excised we talked about this in detail and since she is unemployed and has an interview tomorrow I do feel comfortable with this patient that as long as she follows appropriate postoperative protocol as well as taking antibiotics I do not see any necessary need for further hospitalization. Will discharge after 24 hours of IV antibiotics DC home on Augmentin she does have a Mei drain will be educated she can remove this in 1 to 2 days postoperatively she will have a cam boot on and recommend that she use this for weightbearing. Patient understands agrees current plan. Questions answered.
--- NOTE | 2024-03-20 09:59 | P.PCN_ITS ---
PACU note Narrative: Patient is a 53-year-old female that just underwent right lower leg irrigation and debridement. Pt transferred to PACU in stable condition. Dressing is dry. pt is awake and alert. Patient's dressing intact and her right lower leg is in Ortho boot. Pt able to perform straight leg raise, Femoral nerve intact. Normal knee range of motion. Distal pulses are palpable toes are warm and well- perfused. Cap refill is normal and under 2 seconds. Sensation to foot is intact. Pain is controlled. Exam: awake Disposition: back to floor
--- NOTE | 2024-03-20 10:00 | ANE.PACU2 ---
Inpatient post-anesthesia follow up: Airway intact: Yes Vital signs: Temperature 98.9 F Pulse Rate 91 Respiratory Rate 18 Blood Pressure 139/83 Pulse Oximetry 94 Oxygen Delivery Me thod Room Air Oxygen Flow Rate Fraction of Inspir ed Oxygen Hydration adequate: Yes Nausea and vomiting: No Pain level: 1 Mental status: Baseline
[2024-03-20] MEDS: vancomycin 2,000 MG/400 ML PIGGYBACK 200 MG IV (11:08)
--- NOTE | 2024-03-20 11:21 | PM.DCS ---
Discharge Providers Date of Admission: 03/20/24 00:21 Date of Discharge: March 20, 2024 Attending Provider at Admission: Annabel Neal MD Attending Provider at Discharge: Justin Wang MD Diagnoses at Discharge Discharge Diagnosis (1) Cellulitis and abscess of right leg: Status: Acute (2) Dog bite: Status: Acute Qualifiers: Encounter type: initial encounter Qualified Code(s): W54.0XXA - Bitten by dog, initial encounter Reason for Visit Reason for Visit: Dog Bite Rt Leg Hospital Course Hospital Course criselda Johnson is a 53 year old female with multiple past medical history presented to the hospital today after her dog bit her on her leg. She states that she was with her horse on 17 March and her dog was also outside with her when a stray dog started running towards her dog. Her her dog and the stray dog attacked each other and watching that the horse got little restless therefore she was pushed and got caught between the 2 dogs. Her dog attempted to bite the stray dog however her leg came in between and dog ended up biting her leg. She says immediately he let go. Her dog has been vaccinated. She is 100% sure that it was an accident. She has worsening redness and worsening wound therefore she came to the hospital. Orthopedic surgery was called who initially plan to take patient to the OR for debridement immediately however patient last ate a few hours ago and would not be safe to undergo anesthesia. Plan to keep her n.p.o. at night and take her to surgery in the morning. She was given a dose of Unasyn and I suggested to add vancomycin to that when I was called. The bite took place [address] of the leg was done which showed cellulitis however no defined abscess. Wound itself appears necrotic. Patient was presented to [facility] for right lower extremity dog bite, with surrounding infection concerns, cellulitis, status post right lower leg extremity irrigation and debridement by Dr. Ibanez, tolerated procedure well. She will be discharged on 13 remaining days of p.o. Augmentin, with a follow-up with Dr. Ibanez as outpatient. She was advised that if she has any fevers, chills, swelling of her lower extremity, or any drainage from her lower extremity she should immediately go to emergency room. She tells me that her dog is vaccinated for rabies, and is up-to-date, that the dog attack was accidental as she got between her dog and another dog, but she will watch her dog if there is any change in behavior she should immediately come back to the emergency room for consideration of rabies prophylaxis. She also tells me that she is up-to-date on her tetanus vaccination within the last year. Physical Exam Const: COMMON NORMALS: no acute distress and patient oriented x3 Resp: COMMON NORMALS: normal respiratory effort, No retractions, No use of accessory muscles and clear to auscultation bilaterally AUSCULTATION: clear to auscultation bilaterally Cardio: COMMON NORMALS: regular rate, regular rhythm, S1 normal heart sound present and S2 normal heart sound present RATE: regular rate RHYTHM: regular rhythm HEART SOUNDS: S1 normal heart sound present and S2 normal heart sound present GI: COMMON NORMALS: Normal to inspection, nondistended, normoactive bowel sounds present and non-tender Extremity: COMMON NORMALS: no pedal edema NARRATIVE EXTREMITY EXAM: Right leg, and the binder Neuro: COMMON NORMALS: patient oriented x3 Psych: COMMON NORMALS: mental status grossly normal Discharge Data Studies Completed and Pending Completed Studies During Hospitalization Category Date Time Status CT lower leg RT w con [id number] Stat Cat Scan 03/19/24 20:33 Completed XR chest 1V portable [id number] Routine Exams 03/20/24 02:55 Completed Pending at discharge Category Date Time Status Basic Metabolic Panel AM LABS Lab 03/21/24 04:00 Ordered Blood Culture Stat Lab 03/19/24 20:48 Results Complete Blood Count w/Auto AM LABS Lab 03/21/24 04:00 Ordered Prothrombin Time INR AM LABS Lab 03/21/24 04:00 Ordered Radiology Impressions Lower Extremity CT 03/19/24 20:33 IMPRESSION: 1. There is moderate soft tissue inflammation and skin thickening anterolateral to the right ankle and extending inferiorly over the dorsum of the tarsal bones suspicious for cellulitis. No localized abscess. 2. Large calcified enthesophyte at the Achilles tendon insertion. 3. Calcification with enlargement near the insertion of the Achilles tendon suggesting calcific tendinitis. Chest X-Ray 03/20/24 02:55 IMPRESSION: No acute intrathoracic findings. Laboratory Results WBC 12.65 10^3/uL (3.29-11.43) H 03/19/24 20:48 RBC 4.81 10^6/uL (3.85-5.65) 07/06/24 20:48 Hgb 14.60 g/dL (11.27-16.99) 03/19/24 20:48 Hct 43.7 % (36-47) 03/19/24 20:48 MCV 90.9 fl (85-98) 03/19/24 20:48 MCH 30.4 pg (27-33) 03/19/24 20:48 MCHC 33.4 g/dL (30-55) 03/19/24 20:48 RDW 12.9 % (12.1-15.1) 03/19/24 20:48 Plt Count 227 10^3/cmm (157-399) 03/19/24 20:48 MPV 10.3 fL (7.4-10.4) 03/19/24 20:48 Neut % (Auto) 63.5 % 03/19/24 20:48 Lymph % (Auto) 28.3 % 03/19/24 20:48 [place] % (Auto) 5.9 % 03/19/24 20:48 Eos % (Auto) 1.7 % 03/19/24 20:48 Baso % (Auto) 0.4 % 03/19/24 20:48 Neut # (Auto) 8.02 10^3/uL (1.8-7.7) H 03/19/24 20:48 Lymph # (Auto) 3.6 10^3/uL (0.8-4.8) 03/19/24 20:48 [place] # (Auto) 0.8 10^3/uL (0.2-0.9) 03/19/24 20:48 Eos # (Auto) 0.2 10^3/uL (0.0-0.8) 03/19/24 20:48 Baso # (Auto) 0.1 10^3/uL (0.0-0.1) 03/19/24 20:48 Nucleated RBC % (auto) 0 % 03/19/24 20:48 Nucleated RBCs # 0.0 /100WBC 03/19/24 20:48 ESR 34 mm/hr (0-15) H 03/19/24 20:48 Sodium 136 mmol/L (136-145) 03/19/24 20:48 Potassium 4.3 mmol/L (3.5-5.1) 03/19/24 20:48 Chloride 103 mmol/L (98-107) 03/19/24 20:48 Carbon Dioxide 25 mmol/L (22-29) 03/19/24 20:48 Anion Gap 12.3 (5-19) 03/19/24 20:48 BUN 11 mg/dL (6-20) 03/19/24 20:48 Creatinine 0.6 mg/dL (0.5-0.9) 03/19/24 20:48 GFR Calculation 104.2 mL/min (90-130) 03/19/24 20:48 Glucose 121 mg/dL (65-115) H 03/19/24 20:48 Calculated Osmolality 283 mOsm/kg (285-295) L 03/19/24 20:48 Lactic Acid 0.8 mmol/L (0.5-2.2) 03/19/24 20:48 Calcium 8.9 mg/dL (8.5-10.5) 03/19/24 20:48 Total Bilirubin 0.6 mg/dL (0.15-1.2) 03/19/24 20:48 AST 12 U/L (0-32) 03/19/24 20:48 ALT 22 U/L (0-33) 03/19/24 20:48 Alkaline Phosphatase 62 U/L (35-105) 03/19/24 20:48 C-Reactive Protein 105.8 mg/L (0.0-4.9) H 03/20/24 00:00 Total Protein 7.2 g/dL (6.6-8.7) 03/19/24 20:48 Albumin 4.1 g/dL (3.5-5.2) 03/19/24 20:48 Globulin 3.1 g/dL (1.3-4.6) 03/19/24 20:48 Procalcitonin 0.09 ng/mL (0-0.5) 03/19/24 20:45 Vitals Last Vital Signs Temp 97.5 F L 03/20/24 10:31 Pulse 76 03/20/24 10:31 Resp 20 H 03/20/24 10:31 BP 137/81 03/20/24 10:31 Pulse Ox 95 03/20/24 10:31 O2 Del Method Room Air 03/20/24 10:31 Discharge Plan Discharge Patient Disposition: Home Condition: Stable Prescriptions: New aspirin 81 mg tablet,delayed release (DR/EC) 81 mg PO DAILY 14 Days Qty: 14 0RF tramadol 50 mg tablet 50 mg PO Q6H PRN (Reason: pain) Qty: 20 0RF ondansetron 4 mg tablet,disintegrating 4 mg PO Q8H PRN (Reason: nausea and vomiting) 3 Days Qty: 9 0RF amoxicillin-pot clavulanate 875-125 mg tablet 1 tab PO Q12H 13 Days Qty: 26 0RF Discharge Orders: Discharge Order (Routine); Ordered 03/20/24 Ordered By: Justin Wang Discharge Diet: Regular Discharge Activity: Limit activity as instructed Patient Instructions: Acute Wound Care (DC), Opioid Safety, Post Anesthesia Care Activity Restrictions/Additional Instructions: Orthopedic discharge instructions: Patient may weight-bear in boot On postop day 2 take off boot and remove all dressing and pull drain. After after removal of dressing apply sterile dry dressing over wound. May weight-bear with cam boot for the next 2 weeks Utilize crutches as needed Encourage knee range of motion Ice and elevate as needed for pain and swelling Take pain medication as prescribed Take antinausea medication as needed Take aspirin 81 mg once daily for blood clot prevention Take antibiotic as prescribed by primary team May supplement for pain with ibuprofen [id number] as needed No baths or soaks Follow-up in the orthopedic office in 2 weeks Contact the office for any questions or concerns -If any fevers or chills, or drainage please go to the emergency room Discharge Attestations Time Spent in Discharge Care*: greater than 30 min Quality Metrics Clinical Quality Measures [ No reported AMI, CVA or VTE this stay] Coding Level of Care Code 03241 Total time (in minutes) for Discharge: 45 Diagnoses Cellulitis and abscess of right leg L03.115; L02.415 Dog bite W54.0XXA Encounter type: initial encounter
--- NOTE | 2024-03-20 14:24 | PC.OT ---
PT DECLINES OT EVALUATION; PT REPORTS I AM USING THE RESTROOM BY MYSELF. WILL ATTEMPT AGAIN AT LATER TIME.
[2024-03-20] MEDS: ampicillin-sulbactam 3 GM in sodium chloride 0.9% (plus) 50 ML IV ×2 (15:10→18:29)
--- NOTE | 2024-03-20 16:29 | PC.NURSE ---
Nurse has been asking patient since coming back from surgery about pain level and patient reports everytime that she is not in any pain.
[2024-03-20] MEDS: ketorolac 30 mg/mL INJ 15 MG IVP (17:30)
--- NOTE | 2024-03-21 15:19 | PC.NURSE ---
Dr Wang notified of 1/4 Blood Cultures reported as positive from Lab for staph. No new orders received at this time.
--- NOTE | 2024-03-21 15:20 | P.EN_ITS ---
Event Note Event Note: - Patient's 1 out of 4 blood cultures po sitive for staph coagulase species, recently discharged for dog bite -Likely contamination as an 1 out of 4 b lood cultures however we will continue to monitor blood cultures, -She is on Augmentin -I attempted to reach patient however th e phone went to voicemail
--- NOTE | 2024-03-21 15:20 | W.PM.EVENTAC ---
Event Note Event Note: - Patient's 1 out of 4 blood cultures positive for staph coagulase species, recently discharged for dog bite -Likely contamination as an 1 out of 4 blood cultures however we will continue to monitor blood cultures, -She is on Augmentin -I attempted to reach patient however the phone went to voicemail
== END 2024-03-20 19:38 | disposition home or self-care (01) ==
LOC: ER 23:08 → MEDSURG 03-20 01:21
PROVIDERS: Student in an Organized Health Care Education/Training Program; Admitting Provider Internal Medicine; Emergency Provider Nurse Practitioner Family; Visit Provider Family Medicine
DX: S81.851A Open bite, right lower leg, initial encounter (principal); W54.0XXA Bitten by dog, initial encounter; L03.115 Cellulitis of right lower limb; L02.415 Cutaneous abscess of right lower limb; E66.01 Morbid (severe) obesity due to excess calories; Z68.41 Body mass index [BMI] 40.0-44.9, adult
CPT/HCPCS: 36415; 71045; 73701; 80053; 83605; 84145; 85025; 85651; 86140; 87040; 87077; 87150; 87205; 93005; 96365; 96367; 99285; G0378; J0131; J0295; J0696; J1885; J2250; J2704; J2795; J3010; J3370; J3372; J7030; J7050; Q9967